=== PATIENT | male | born 1965 | race American Indian/Alaskan Native ===

== ENCOUNTER 2020-06-11 23:03 | Emergency (ER) | payer OTHER ==
[2020-06-11 23:12] VITALS: BP 155/96
[2020-06-12] MEDS ORDERED: DIPHtheria,PERTUSSIS(ACELL),TETANUS VACCINE/PF 0.5 ML VIAL IM ONE (00:43)
[2020-06-12] MEDS ORDERED: IBUPROFEN 600 MG TAB PO ONE (00:43)
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
== END 2020-06-12 00:53 | disposition left against medical advice (07) ==
LOC: ED 23:03
DX: S00.81XA Abrasion of other part of head, initial encounter (principal); R51.9 Headache, unspecified; H57.12 Ocular pain, left eye; V49.49XA Driver injured in collision with other motor vehicles in traffic accident, initial encounter; Y93.89 Activity, other specified; Y92.410 Unspecified street and highway as the place of occurrence of the external cause; Y99.8 Other external cause status
CPT/HCPCS: 90471; 99283